=== PATIENT | female | born 1995 | race Caucasian/White ===

== ENCOUNTER 2021-11-07 11:39 | Emergency (ER) | payer OTHER, MEDICAID, SELFPAY ==
[2021-11-07 11:55] VITALS: BP 120/74; PULSE 79; RESP 20; TEMP 36.6; O2SAT 99; BMI 24.9
[2021-11-07 12:07] VITALS: BP 111/55; PULSE 73; RESP 7; O2SAT 100
--- NOTE | 2021-11-07 12:29 | DI.RAD.S_ITS ---
PROCEDURE: XR CHEST 2V INDICATIONS: R sided pleuritic pain TECHNIQUE: 2 views of the chest were acquired. COMPARISON: None. FINDINGS: Surgical changes and devices: None. Lungs and pleura: Lungs are clear. No pleural effusions or pneumothorax. Mediastinum: Mediastinal contours are normal. Heart size is normal. Bones and chest wall: No suspicious bony abnormalities. Soft tissues appear unremarkable. IMPRESSION: No acute cardiopulmonary abnormality. Dictated by: Reed Canada M.D. on 11/07/2021 at 12:58 Approved by: Reed Canada M.D. on 11/07/2021 at 12:58
[2021-11-07 12:30] VITALS: BP 110/59; PULSE 77; RESP 19; O2SAT 100
--- NOTE | 2021-11-07 12:32 | ED.CHESTPAIN ---
HPI - Chest Pain <Luiz Denis PA-C - Last Filed: 11/07/21 14:01> General Chief Complaint: Chest Pain Stated Complaint: Sharp chest pain- right side Time Seen by Provider: 11/07/21 12:09 Source: patient Mode of arrival: Ambulatory Limitations: no limitations History of Present Illness HPI narrative: 26-year-old female with no reported past medical history presents to the ED with 2 days of right-sided pleuritic chest pain. Patient states spontaneous onset of right-sided pleuritic pain, aggravated by taking in a deep breath. Patient denies any trauma. Patient endorses a mild cough and nasal congestion due to a URI she has had for a few days. Patient denies fever, chills, shortness of breath, abdominal pain, dysuria, flank pain, lightheadedness, dizziness, syncope. Patient endorses some nausea and vomiting, however she is unsure if that is due to a recently discovered . Patient took a home test yesterday that was positive. Related Data Allergies Allergy/AdvReac Type Severity Reaction Status Date / Time horseradish [HORSERADISH] Allergy Unknown Verified 11/07/21 11:55 Review of Systems <Luiz Denis PA-C - Last Filed: 11/07/21 14:01> Review of Systems ROS Unobtainable: All systems reviewed & are unremarkable except as noted in HPI and below Constitutional Constitutional: Denies chills, Denies fatigue, Denies fever(s), Denies frequent falls, Denies lethargy and Denies weakness Eyes Eyes: Denies change in vision, Denies eye discharge, Denies irritation and Denies loss of vision ENT Ears, Nose, Mouth, and Throat: Denies change in voice, Denies dizziness, Reports nasal congestion, Denies neck pain, Denies sore throat and Denies throat swelling Cardiovascular Cardiovascular: Reports chest pain, Denies irregular heart rhythm, Denies lightheadedness, Denies palpitations, Denies dyspnea, Denies dyspnea on exertion and Denies orthopnea Respiratory Respiratory: Reports cough, Denies dyspnea, Denies dyspnea on exertion and Denies wheezing Gastrointestinal Gastrointestinal: Denies abdominal pain, Denies change in bowel habits, Denies diarrhea, Reports nausea and Reports vomiting Genitourinary Genitourinary: Denies hematuria, Denies flank pain, Denies urinary incontinence and Denies urinary urgency Musculoskeletal Musculoskeletal: Denies back pain, Denies muscle weakness, Denies neck pain, Denies numbness and Denies tingling Integumentary/Breasts Skin/Breast: Denies pruritus, Denies erythema, Denies rash and Denies wounds Neurologic Neurologic: Denies behavioral changes, Denies confusion, Denies dizziness, Denies frequent falls, Denies loss of vision, Denies numbness, Denies tingling and Denies weakness Psychiatric Psychiatric: Denies anxiety, Denies behavioral changes, Denies confusion, Denies depression, Denies homicidal ideation and Denies suicidal ideation Endocrine Endocrine: Denies fatigue, Denies flushing and Denies palpitations Hematologic/Lymphatic Hematologic/Lymphatic: Denies easy bruising Allergic/Immunologic Allergic/Immunologic: Denies urticaria, Denies throat swelling and Denies wheezing Patient History <Luiz Denis PA-C - Last Filed: 11/07/21 14:01> Surgical History Status post delivery (11/23/15) Social History Smoking Status: Current every day smoker Smoking Status: Current every day smoker Substance Use Type: does not use Exam <Luiz Denis PA-C - Last Filed: 11/07/21 14:01> Initial Vital Signs Initial Vital Signs: Vital Signs Temperature 97.8 F 11/07/21 11:55 Pulse Rate 79 11/07/21 11:55 Respiratory Rate 20 11/07/21 11:55 Blood Pressure 120/74 11/07/21 11:55 Pulse Oximetry 99 11/07/21 11:55 Const General: cooperative, healthy appearing and comfortable [facility] Head: normal to inspection Mouth: oral mucosae normal Eyes General: appearance normal, both eyes and all related structures Neck Neck: normal visual inspection Chest Chest: normal inspection of the chest Other: Point Tenderness to palpation elicited just below the right breast. No rash, bruising visualized. Resp Effort & Inspection: normal respiratory effort Auscultation: clear to auscultation bilaterally Cardio Rate: regular rate Rhythm: regular rhythm GI Other: Abdomen is soft, nondistended, nontender to palpation. General: No CVA tenderness Skin General: no rashes or lesions noted Neuro General: patient alert, patient awake and patient oriented x3 Extrem General: normal to inspection <Nicole Sy DO - Last Filed: 11/08/21 08:06> Initial Vital Signs Initial Vital Signs: Vital Signs Temperature 97.8 F 11/07/21 11:55 Pulse Rate 79 11/07/21 11:55 Respiratory Rate 20 11/07/21 11:55 Blood Pressure 120/74 11/07/21 11:55 Pulse Oximetry 99 11/07/21 11:55 Course <Luiz Denis PA-C - Last Filed: 11/07/21 14:01> Orders Ordered: Discontinued Medications Acetaminophen (Acetaminophen 325 Mg Tablet) 975 mg PO NOW ONE Stop: 11/07/21 12:39 Last Admin: 11/07/21 13:06 Dose: 975 mg Documented by: KIKI Vital Signs Vital signs: Vital Signs - 8 hr 11/07/21 11:55 11/07/21 12:07 11/07/21 12:30 Temperature 97.8 F Pulse Rate 79 73 77 Respiratory Rate 20 7 L 19 Blood Pressure 120/74 111/55 L 110/59 L Pulse Oximetry 99 100 100 11/07/21 12:45 11/07/21 13:00 Temperature Pulse Rate 80 83 Respiratory Rate 14 19 Blood Pressure 113/65 Pulse Oximetry 97 93 <Nicole Sy DO - Last Filed: 11/08/21 08:06> Orders Ordered: Discontinued Medications Acetaminophen (Acetaminophen 325 Mg Tablet) 975 mg PO NOW ONE Stop: 11/07/21 12:39 Last Admin: 11/07/21 13:06 Dose: 975 mg Documented by: KIKI Vital Signs Vital signs: Vital Signs - 8 hr 11/07/21 11:55 11/07/21 12:07 11/07/21 12:30 Temperature 97.8 F Pulse Rate 79 73 77 Respiratory Rate 20 7 L 19 Blood Pressure 120/74 111/55 L 110/59 L Pulse Oximetry 99 100 100 11/07/21 12:45 11/07/21 13:00 Temperature Pulse Rate 80 83 Respiratory Rate 14 19 Blood Pressure 113/65 Pulse Oximetry 97 93 MDM - Chest Pain <LUBNA Woods Last Filed: 11/07/21 14:01> Lab Data Lab results narrative: Labs within normal limits. COVID-19 negative. HCG positive. Result diagrams: 11/07/21 12:20 11/07/21 12:20 Labs: Lab Results 11/07/21 11/07/21 11/07/21 Range/Units 12:15 12:20 12:20 WBC 9.6 (4.5-11.0) X10^3/uL RBC 4.73 (4.0-5.2) X10^6/uL Hgb 13.7 (12.0-16.0) g/dL Hct 40.1 (36-46) % MCV 84.7 (80-100) fL MCH 28.9 (26-34) PG MCHC 34.1 (30-36) % RDW 14.1 (11.6-14.8) % Plt Count 245 (150-400) X10^3/uL Neut % (Auto) 72.8 (50-75) % Lymph % (Auto) 19.1 L (25-40) % Amelia % (Auto) 7.3 (3-14) % Eos % (Auto) 0.4 L (2-4) % Baso % (Auto) 0.4 (0-2) % Neut # (Auto) 7000 (3636-4304) /uL Lymph # (Auto) 1800 (5156-2181) /uL Amelia # (Auto) 700 (0-900) /uL Eos # (Auto) 0 (0-450) /uL Baso # (Auto) 0 (0-100) /uL Sodium 138 (137-145) mmol/L Potassium 3.7 (3.4-5.1) mmol/L Chloride 104 (98-107) mmol/L Carbon Dioxide 26 (22-32) mmol/L BUN 7 (7-17) mg/dL Creatinine 0.62 (0.52-1.04) mg/dL Estimated GFR > 60.0 (>60) mL/min BUN/Creatinine Ratio 11.3 (6-22) Glucose 84 (70-100) mg/dL Calcium 9.3 (8.4-10.2) mg/dL Total Bilirubin 0.6 (0.2-1.3) mg/dL AST 22 (14-36) IU/L ALT 17 (<35) IU/L Alkaline Phosphatase 68 (38-126) U/L Troponin I (0.01-0.034) ng/mL Total Protein 6.9 (6.3-8.2) g/dL Albumin 4.2 (3.5-5.0) g/dL Globulin 2.7 (1.7-4.1) g/dL Albumin/Globulin Ratio 1.6 (1.0-2.8) HCG, Quant mIU/mL SARS-CoV-2 (PCR) Negative (Negative) 11/07/21 11/07/21 Range/Units 12:20 12:20 WBC (4.5-11.0) X10^3/uL RBC (4.0-5.2) X10^6/uL Hgb (12.0-16.0) g/dL Hct (36-46) % MCV (80-100) fL MCH (26-34) PG MCHC (30-36) % RDW (11.6-14.8) % Plt Count (150-400) X10^3/uL Neut % (Auto) (50-75) % Lymph % (Auto) (25-40) % Amelia % (Auto) (3-14) % Eos % (Auto) (2-4) % Baso % (Auto) (0-2) % Neut # (Auto) (0756-6982) /uL Lymph # (Auto) (0044-6959) /uL Amelia # (Auto) (0-900) /uL Eos # (Auto) (0-450) /uL Baso # (Auto) (0-100) /uL Sodium (137-145) mmol/L Potassium (3.4-5.1) mmol/L Chloride (98-107) mmol/L Carbon Dioxide (22-32) mmol/L BUN (7-17) mg/dL Creatinine (0.52-1.04) mg/dL Estimated GFR (>60) mL/min BUN/Creatinine Ratio (6-22) Glucose (70-100) mg/dL Calcium (8.4-10.2) mg/dL Total Bilirubin (0.2-1.3) mg/dL AST (14-36) IU/L ALT (<35) IU/L Alkaline Phosphatase (38-126) U/L Troponin I < 0.012 (0.01-0.034) ng/mL Total Protein (6.3-8.2) g/dL Albumin (3.5-5.0) g/dL Globulin (1.7-4.1) g/dL Albumin/Globulin Ratio (1.0-2.8) HCG, Quant 27587 mIU/mL SARS-CoV-2 (PCR) (Negative) Point of Care Testing Test Results Positive Urine Dip Bedside Urine Glucose Negative Bedside Urine Bilirubin - Negative Bedside Urine Ketone +/- 5 Urine Specific [place] 1.030 Bedside Urine Occult Blood - Negative Bedside Urine pH 6.0 Bedside Urine Protein - Negative Bedside Urine Urobilinogen - Negative Bedside Urine Nitrite - Negative Bedside Urine Leukocytes - Negative Esterase Imaging Data Chest x-ray: Radiologist's Impression: PROCEDURE:? XR CHEST 2V ? INDICATIONS:? R sided pleuritic pain ? TECHNIQUE:? 2 views of the chest were acquired.? ? COMPARISON:? None. ? FINDINGS:? ? Surgical changes and devices:? None.? ? Lungs and pleura:? Lungs are clear.? No pleural effusions or pneumothorax.? ? Mediastinum:? Mediastinal contours are normal.? Heart size is normal.? ? Bones and chest wall:? No suspicious bony abnormalities.? Soft tissues appear unremarkable.? ? IMPRESSION:? No acute cardiopulmonary abnormality. ? ? Dictated by: Reed Canada M.D. on 11/07/2021 at 12:58 ? ? Approved by: Reed Canada M.D. on 11/07/2021 at 12:58 ? ECG Data Interpretation: Normal sinus rhythm, right axis deviation, no acute ST-T changes. MDM Narrative Medical decision making narrative: 26-year-old female with no reported past medical history presents to the ED with 2 days of right-sided pleuritic chest pain. Concern for ACS versus pneumonia versus COVID-19 infection versus other viral syndrome versus musculoskeletal sprain/strain. Unlikely PE given PERC negative. Will order chest x-ray, EKG, labs, hCG, COVID-19 test. Will give Tylenol for pain. Will reassess. Labs were normal. COVID-19 negative. Chest x-ray and EKG without acute findings. HCG positive. hCG quantitative ordered. ED return precautions discussed with patient. Patient will follow-up with OBGYN regarding her . Patient verbalized understanding. <Nicole Sy, - Last Filed: 11/08/21 08:06> Lab Data Labs: Lab Results 11/07/21 11/07/21 11/07/21 Range/Units 12:15 12:20 12:20 WBC 9.6 (4.5-11.0) X10^3/uL RBC 4.73 (4.0-5.2) X10^6/uL Hgb 13.7 (12.0-16.0) g/dL Hct 40.1 (36-46) % MCV 84.7 (80-100) fL MCH 28.9 (26-34) PG MCHC 34.1 (30-36) % RDW 14.1 (11.6-14.8) % Plt Count 245 (150-400) X10^3/uL Neut % (Auto) 72.8 (50-75) % Lymph % (Auto) 19.1 L (25-40) % Amelia % (Auto) 7.3 (3-14) % Eos % (Auto) 0.4 L (2-4) % Baso % (Auto) 0.4 (0-2) % Neut # (Auto) 7000 (7316-5512) /uL Lymph # (Auto) 1800 (3836-9143) /uL Amelia # (Auto) 700 (0-900) /uL Eos # (Auto) 0 (0-450) /uL Baso # (Auto) 0 (0-100) /uL Sodium 138 (137-145) mmol/L Potassium 3.7 (3.4-5.1) mmol/L Chloride 104 (98-107) mmol/L Carbon Dioxide 26 (22-32) mmol/L BUN 7 (7-17) mg/dL Creatinine 0.62 (0.52-1.04) mg/dL Estimated GFR > 60.0 (>60) mL/min BUN/Creatinine Ratio 11.3 (6-22) Glucose 84 (70-100) mg/dL Calcium 9.3 (8.4-10.2) mg/dL Total Bilirubin 0.6 (0.2-1.3) mg/dL AST 22 (14-36) IU/L ALT 17 (<35) IU/L Alkaline Phosphatase 68 (38-126) U/L Troponin I (0.01-0.034) ng/mL Total Protein 6.9 (6.3-8.2) g/dL Albumin 4.2 (3.5-5.0) g/dL Globulin 2.7 (1.7-4.1) g/dL Albumin/Globulin Ratio 1.6 (1.0-2.8) HCG, Quant mIU/mL SARS-CoV-2 (PCR) Negative (Negative) 11/07/21 11/07/21 Range/Units 12:20 12:20 WBC (4.5-11.0) X10^3/uL RBC (4.0-5.2) X10^6/uL Hgb (12.0-16.0) g/dL Hct (36-46) % MCV (80-100) fL MCH (26-34) PG MCHC (30-36) % RDW (11.6-14.8) % Plt Count (150-400) X10^3/uL Neut % (Auto) (50-75) % Lymph % (Auto) (25-40) % Amelia % (Auto) (3-14) % Eos % (Auto) (2-4) % Baso % (Auto) (0-2) % Neut # (Auto) (8442-2795) /uL Lymph # (Auto) (5251-3547) /uL Amelia # (Auto) (0-900) /uL Eos # (Auto) (0-450) /uL Baso # (Auto) (0-100) /uL Sodium (137-145) mmol/L Potassium (3.4-5.1) mmol/L Chloride (98-107) mmol/L Carbon Dioxide (22-32) mmol/L BUN (7-17) mg/dL Creatinine (0.52-1.04) mg/dL Estimated GFR (>60) mL/min BUN/Creatinine Ratio (6-22) Glucose (70-100) mg/dL Calcium (8.4-10.2) mg/dL Total Bilirubin (0.2-1.3) mg/dL AST (14-36) IU/L ALT (<35) IU/L Alkaline Phosphatase (38-126) U/L Troponin I < 0.012 (0.01-0.034) ng/mL Total Protein (6.3-8.2) g/dL Albumin (3.5-5.0) g/dL Globulin (1.7-4.1) g/dL Albumin/Globulin Ratio (1.0-2.8) HCG, Quant 44060 mIU/mL SARS-CoV-2 (PCR) (Negative) Point of Care Testing Test Results Positive Urine Dip Bedside Urine Glucose Negative Bedside Urine Bilirubin - Negative Bedside Urine Ketone +/- 5 Urine Specific [place] 1.030 Bedside Urine Occult Blood - Negative Bedside Urine pH 6.0 Bedside Urine Protein - Negative Bedside Urine Urobilinogen - Negative Bedside Urine Nitrite - Negative Bedside Urine Leukocytes - Negative Esterase Discharge Plan Departure Patient Disposition: Home Clinical Impression: Chest pain Instructions: DI for Chest Pain Activity Restrictions/Additional Instructions: You were evaluated in the ED today for chest pain. Your EKG, chest x-ray, labs were normal. Your COVID-19 test was negative. Your test was positive. Your physical exam was very reassuring, your pain was easily reproducible by pushing on your chest wall. Your symptoms are likely due to a musculoskeletal sprain or strain or contusion. Your symptoms were also relieved by Tylenol. You may continue to take Tylenol for your symptoms. Please return to the ED if your symptoms worsen, you have trouble breathing, you have fevers, chills. Please follow-up with your OBGYN for your . Referrals: Jocelyne Leon MD [Primary Care Provider] - <Nicole Sy DO - Last Filed: 11/08/21 08:06> Cosign ED Attending Groverature Attestation: I was immediately available in the department for consultation. Documentation has been reviewed.
[2021-11-07 12:45] VITALS: BP 113/65; PULSE 80; RESP 14; O2SAT 97
[2021-11-07 13:00] VITALS: PULSE 83; RESP 19; O2SAT 93
[2021-11-07 13:04] LABS: Troponin I < 0.012 ng/mL (0.01-0.034)
[2021-11-07 13:06] LABS: COVID19 -Nasal RAPID Negative (Negative)
[2021-11-07] MEDS: ACETAMINOPHEN 325 MG TABLET 975 MG PO (13:06)
[2021-11-07 13:30] VITALS: PULSE 76; RESP 18
[2021-11-07 14:09] LABS: HCG Quantitative /Beta subunit 14362 mIU/mL
== END 2021-11-07 14:00 | disposition home or self-care (01) ==
PROVIDERS: Emergency Provider Student in an Organized Health Care Education/Training Program; PCP Obstetrics & Gynecology
DX: R07.9 Chest pain, unspecified (principal); Z20.822 Contact with and (suspected) exposure to COVID-19
CPT/HCPCS: 36415; 71046; 80053; 81003; 81025; 84484; 84702; 85025; 87635; 93005; 93010; 99284; C9803

== ENCOUNTER 2022-03-22 17:26 | Observation (INO) | payer OTHER, MEDICAID, SELFPAY ==
--- NOTE | 2022-03-22 17:58 | PM.OBTRLD ---
Visit Information Visit Information Date of evaluation: 03/22/22 On-call OB Provider: Kim Dubios Comments/Additional reasons for admission: 26-year-old at 28 weeks gestation with nausea and vomiting for the last 3 days. She thinks she may have food poisoning. She has been unable to keep anything down. She has also had diarrhea. Denies contractions, leaking or bleeding and reports good movement. Obstetric care as with the residency program at [facility]. History is significant for prior followed by two VBACs. Vital Signs Vital Signs: Temperature 36.3? blood pressure 129/78 heart rate 100, repeat blood pressure 118/73 heart rate 88 PFSH Surgical History Status post delivery (11/23/15) Social History Smoking Status: Current every day smoker Evaluation Evaluation Baseline heart rate: 150 Variability: Moderate (11-25) monitor accelerations: Present Monitor Decelerations: Absent Category of Tracing: Reactive Diagnosis, Plan/Disposition Plan/Disposition Plan: 26-year-old at 28 weeks gestation with nausea and vomiting the past 3 days. NST reactive without concern for labor. She received 1 L of LR as well as Zofran and felt much improved. She was tolerating fluids and crackers and eager to return home. Follow up in clinic as scheduled or return sooner if needed. OB Disposition: home
[2022-03-22] MEDS: ONDANSETRON 4 MG/2 ML INJ IV (18:33)
[2022-03-22] MEDS: LACTATED RINGERS 1,000 ML 1000 ML IV (18:35)
[2022-03-22 19:01] LABS: COVID19 -Nasal RAPID Negative (Negative)
[2022-03-22 20:45] LABS: Appearance Urine UA CLEAR; Bilirubin Urine UA 2+ (NEGATIVE); Color Urine UA YELLOW; Glucose Urine UA NEGATIVE (Negative); Ketones Urine UA 3+ (NEGATIVE); Leukocyte Esterase Urine UA NEGATIVE (NEGATIVE); Nitrite Urine UA NEGATIVE (Negative); Occult Blood Urine UA NEGATIVE (Negative); Protein Urine UA 2+ (Negative); Specific Gravity Urine UA 1.025 (1.000-1.035); Urobilinogen Urine UA 0.2 E.U./dL (0.2)
[2022-03-22 20:47] LABS: pH Urine UA 5.5 (4.5-8.0)
[2022-03-22 20:56] LABS: Ictotest Urine Negative (Negative)
[2022-03-22 20:57] LABS: Bacteria Urine None Seen; Culture Indicated Urine Cult Not Indicated; Mucus Urine 2+ (Negative); RBC Urine None Seen (0-5/HPF); Squamous Epithelial Cell Urine 1-5 /HPF (0-5/HPF); WBC Urine 0-1/HPF (0-5/HPF)
== END 2022-03-22 20:15 | disposition home or self-care (01) ==
LOC: LABOR 17:32
PROVIDERS: Admitting Provider Family Medicine; PCP Obstetrics & Gynecology; Referring Provider Family Medicine; Visit Provider Family Medicine
DX: O26.893 Other specified pregnancy related conditions, third trimester (principal); R11.2 Nausea with vomiting, unspecified; R19.7 Diarrhea, unspecified; Z3A.28 28 weeks gestation of pregnancy
CPT/HCPCS: 59025; 81001; 87635; 96360; C9803; G0378; G0379; J2405